=== PATIENT | male | born 1945 | race Caucasian/White ===

== ENCOUNTER → 2017-07-13 | Outpatient (CLI) | payer MEDICARE, OTHER ==
[~2017-07-13] MED LIST: ADULT LOW STREN81 M2 PO; AMLODIPINE BES2.5 MG PO; ASACOL HD800 MG PO; ASPIR 8181 M1 PO; ASPIRIN81 M2 PO; BAYER CHEWABLE81 MG PO; BUDESONIDE EC3 MG PO; ELIQUIS5 MG PO; ENDOCET 5-3251 EACH PO; ENTOCORT EC3 MG PO; FLOMAX0.4 MG PO; GABAPENTIN600 MG PO; LISINOPRIL2.5 MG PO; NEURONTIN600 MG PO; SERTRALINE HCL100 MG PO; SIMVASTATIN5 MG PO; TOPROL XL25 MG PO; XARELTO20 MG PO; ZESTRIL,PRINIV2.5 MG PO; ZESTRIL2.5 MG PO; ZOCOR40 MG PO; ZOLOFT100 M1 PO; ZOLOFT100 MG PO
== END | disposition home or self-care (01) ==
LOC: CDC 14:02
DX: Z01.810 Encounter for preprocedural cardiovascular examination (principal); R97.20 Elevated prostate specific antigen [PSA]; R94.31 Abnormal electrocardiogram [ECG] [EKG]; N40.2 Nodular prostate without lower urinary tract symptoms; Z95.0 Presence of cardiac pacemaker
CPT/HCPCS: 93000